=== PATIENT | male | born 1955 | race Caucasian/White ===

== ENCOUNTER 2019-07-19 20:53 | Emergency (ER) | payer BC ==
[~2019-07-19] VITALS: Ht 182.9 cm; Wt 90.7 kg
[2019-07-19] MEDS ORDERED: LISINOPRIL20 MG ORAL (21:04)
[2019-07-19] MEDS ORDERED: ATORVASTATIN CA20 MG ORAL (21:04)
--- NOTE | 2019-07-19 21:08 | Emergency Room Report ---
History of Present Illness General Chief Complaint: Animal Bite Source: Patient Present Illness HPI Disclaimer: Please note that this report is being documented using DRAGON technology. This can lead to erroneous entry secondary to incorrect interpretation by the dictating instrument. HPI: 64-year-old [id number] male presents for evaluation of a dog bite on his left pinky finger. He was wrestling with his dog at home and try to get something out of his mouth and caught the medial edge next to the nail at the distal phalanx. Has some avulsed skin. Applied a dressing at home for hemostasis. Denies any changes in sensation. Able to flex and extend all digits. No other injury sustained. Dog's vaccinations are up-to-date. Patient 's tetanus was updated within the last 5 years. PMH: Hypertension PSH: None Allergies: None Social Hx: Denies drug or alcohol abuse Allergies: Coded Allergies: No Known Allergies (Unverified , 07/19/19) Nursing Documentation-PMH Past Medical History: No History, Except For Hx Hypertension: Yes Physical Exam Vital Signs Date Time Temp Pulse Resp B/P (MAP) Pulse Ox O2 Delivery O2 Flow Rate FiO2 07/19/19 21:00 98.1 81 16 145/80 (101) 99 Room Air General: Awake and alert, no acute distress HEENT: NC/AT. EOMI. Resp: Normal work of breathing Skin: There is a 1 cm linear superficial laceration across the distal pad of the pinky finger on the left hand. Clean, hemostatic. There is another vertically oriented laceration approximately 3 cm in length also superficial, clean, light and oozing. MSK: Normal tone and bulk. Moving all extremities. No obvious deformity. Neuro: Awake and alert. Mentating appropriately Procedures Laceration/Wound Repair Laceration/Wound Repair : Consent: Verbal Wound Location: upper extremity - Left pinky finger Wound's Depth, Shape: superficial, linear Wound Length (cm): 5 Wound Explored: clean Anesthesia: 1% Lidocaine Volume Anesthetic (ccs): 7 Wound Debrided: None Wound Repaired With: sutures Suture Size/Type: 5:0, proline Number of Sutures: 11 Layer Closure?: No Sterile Dressing Applied?: Yes Medical Decision Making Diagnostic Impression: Primary Impression: Bite by animal ER Course 64-year-old male presents for evaluation of a laceration to the left pinky finger from his dog. Tetanus is up-to-date. Wound was closed with simple interrupted sutures. Copious irrigation under pressure. There are 2 separate lacerations one required 3 sutures and another required 8. Achieved satisfactory approximation and closure. The patient will be started on Augmentin for prophylaxis. We will have his stitches removed in 1 week by PMD or return to the emergency department. We discussed reasons to return to the emergency department for reevaluation. He understands and agrees with the treatment plan. Last Vital Signs Date Time Temp Pulse Resp B/P (MAP) Pulse Ox O2 Delivery O2 Flow Rate FiO2 07/19/19 21:00 98.1 81 16 145/80 (101) 99 Room Air Disposition: HOME, SELF-CARE Condition: Stable Scripts Amoxicillin/Potassium Clav 875-125* (AUGMENTIN 875-125 TABLET*) 1 Each Tablet 1 TAB ORAL TWICE A DAY for 5 Days, #10 TAB Prov: Joaquin Ellison MD 07/19/19 Joaquin Ellison MD Jul 19, 2019 21:08
[2019-07-19 21:17] VITALS: BP 145/80
[2019-07-19] MEDS ORDERED: AUGMENTIN 875-1 EAC1 ORAL (21:17)
[2019-07-19 22:06] VITALS: BP 145/80
== END 2019-07-19 21:30 | disposition home or self-care (01) ==
LOC: EMR 21:14
DX: S61.257A Open bite of left little finger without damage to nail, initial encounter (principal); W54.0XXA Bitten by dog, initial encounter; Y92.9 Unspecified place or not applicable; I10 Essential (primary) hypertension
CPT/HCPCS: 99283